=== PATIENT | female | born 1950 | race Caucasian/White ===

== ENCOUNTER 2019-10-08 11:15 | Outpatient (CLI) | payer OTHER, SELFPAY | END 2019-10-08 23:59 | disposition home or self-care (01) | LOC: MLB 11:15 → EDSTATUS 10-18 15:55 | PROVIDERS: ATTEND Internal Medicine Gastroenterology | DX: Z01.812 Encounter for preprocedural laboratory examination (principal); R10.12 Left upper quadrant pain; K21.9 Gastro-esophageal reflux disease without esophagitis; Z20.828 Contact with and (suspected) exposure to other viral communicable diseases | CPT/HCPCS: U0003-CS ==